=== PATIENT | female | born 1965 | race Caucasian/White ===

== ENCOUNTER → 2021-01-31 17:34 | Outpatient (CLI) | payer SELFPAY ==
--- NOTE | ~2021-01-31 | XR_ITS ---
XR foot RT 2V 01/31/2021 18:22 Indication: Polyarthralgias Procedure: 2 views right foot Comparison: No prior studies for comparison. Findings: Osteopenia. Lisfranc joint intact. Mild osteoarthritis of the first MTP joint. Small degene rative calcaneal enthesophytes. No focal soft tissue abnormality. No foreign bodies. Impression: 1: Mild osteoarthritis of the first MTP joint. Reviewed, dictated and finalized at location A. Impression: 1: Mild osteoarthritis of the first MTP joint.
--- NOTE | ~2021-01-31 | XR_ITS ---
XR hand RT 2V 01/31/2021 18:22 Indication: Polyarthralgias Procedure: 2 views right hand Comparison: No prior studies for comparison. Findings: There is mild polyarticular osteoarthritis primarily involving the interphalangeal joints. No erosive changes. No fracture or traumatic malalignment. No focal soft tissue abnormality. No forei gn bodies. Impression: 1: Mild polyarticular osteoarthritis. Reviewed, dictated and finalized at location A. Impression: 1: Mild polyarticular osteoarthritis.
--- NOTE | ~2021-01-31 | XR_ITS ---
EXAMINATION: XR chest 2V 01/31/2021 18:22 INDICATION: Arthralgias PROCEDURE: 2 view chest COMPARISON: No prior studies for comparison. FINDINGS: The lungs are clear. The cardiomediastinal silhouette is within normal limits. There are no pleural effusions. There is no pneumothorax suspected. IMPRESSION: 1: NO ACUTE CARDIOPULMONARY DISEASE. Reviewed, dictated and finalized at location A.
--- NOTE | ~2021-01-31 | XR_ITS ---
XR foot LT 2V 01/31/2021 18:22 Indication: Left foot pain Procedure: 2 views left foot Comparison: No prior studies for comparison. Findings: Osteopenia. No acute fracture or traumatic malalignment. Mild osteoarthritis of the first M TP joint. Lisfranc joint intact. No focal soft tissue abnormality. No foreign bodies. Impression: 1: Mild osteoarthritis of the first MTP joint. Reviewed, dictated and finalized at location A. Impression: 1: Mild osteoarthritis of the first MTP joint.
--- NOTE | ~2021-01-31 | XR_ITS ---
XR hand LT 2V 01/31/2021 18:22 Indication: Left hand pain Procedure: 2 views left hand Comparison: No prior studies for comparison. Findings: There is mild polyarticular osteoarthritis of the left hand primarily involving the interph alangeal joints. 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 No acute fractur e or traumatic malalignment. No soft tissue abnormalities. No foreign bodies. Impression: 1: Mild polyarticular osteoarthritis. Reviewed, dictated and finalized at location A. Impression: 1: Mild polyarticular osteoarthritis.
== END ==
PROVIDERS: Visit Provider Physician Assistant
DX: M19.042 Primary osteoarthritis, left hand (principal); M19.041 Primary osteoarthritis, right hand; M18.12 Unilateral primary osteoarthritis of first carpometacarpal joint, left hand; M19.072 Primary osteoarthritis, left ankle and foot; M19.071 Primary osteoarthritis, right ankle and foot; R53.83 Other fatigue
CPT/HCPCS: 71046; 73120; 73620